=== PATIENT | male | born 1975 | race Caucasian/White ===

== ENCOUNTER 2017-04-19 17:53 | Emergency (ER) | payer MEDICARE, MEDICAID ==
[~2017-04-19] VITALS: Ht 180.3 cm; Wt 113.4 kg
[2017-04-19] MEDS ORDERED: TETANUS,DIPTH,PERTUSS P/F (BOOSTRIX) 0.5 ML VIAL IM STA (19:34)
[2017-04-19] MEDS ORDERED: NS IV 1000 ML 1,000 ML IV ONE ×2 (19:34→22:31)
[2017-04-19] MEDS ORDERED: KETOROLAC 30 MG/ML VIAL IVP STA (19:34)
[2017-04-19 19:45] LABS: BASOPHILS % (AUTO) 0 % (0-10); EOSINOPHILS % (AUTO) 0 % (0-10); LYMPHOCYTES # (AUTO) 1.2 X 10^3 (1.0-4.0); LYMPHOCYTES % (AUTO) 8 % (12-44); MEAN CORPUSCULAR HEMOGLOBIN 28 PG (25-34); MEAN CORPUSCULAR HGB CONC 35 G/DL (32-36); MEAN CORPUSCULAR VOLUME 82 FL (80-99); MEAN PLATELET VOLUME 12.2 FL (7.4-10.4); MONOCYTES % (AUTO) 7 % (0-12); NEUTROPHILS # (AUTO) 12.4 X 10^3 (1.8-7.8); NEUTROPHILS % (AUTO) 85 % (42-75); PLATELET COUNT 251 10^3/uL (130-400); RED BLOOD COUNT 5.41 10^6/uL (4.35-5.85); RED CELL DISTRIBUTION WIDTH 13.3 % (10.0-14.5); WHITE BLOOD COUNT 14.6 10^3/uL (4.3-11.0)
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
[2017-04-19 19:53] LABS: ALANINE AMINOTRANSFERASE 57 U/L (0-55); ALBUMIN 4.5 GM/DL (3.2-4.5); ANION GAP 10 MMOL/L (5-14); ASPARTATE AMINO TRANSFERASE 34 U/L (5-34); BILIRUBIN,TOTAL 0.9 MG/DL (0.1-1.0); BLOOD UREA NITROGEN 8 MG/DL (7-18); BUN/CREATININE RATIO 7; CALCIUM 9.5 MG/DL (8.5-10.1); CARBON DIOXIDE 25 MMOL/L (21-32); CHLORIDE 104 MMOL/L (98-107); GFR ESTIMATED > 60; GLUCOSE 99 MG/DL (70-105); POTASSIUM 3.9 MMOL/L (3.6-5.0); SODIUM 139 MMOL/L (135-145); TOTAL PROTEIN 7.8 GM/DL (6.4-8.2)
[2017-04-19 20:19] LABS: BAND NEUTROPHILS 14 %; EOSINOPHILS % (MANUAL) 0 %; LYMPHOCYTES % (MANUAL) 9 %; NEUTROPHILS % (MANUAL) 76 %
[2017-04-19] MEDS ORDERED: NS IV 500 ML 500 ML IV ONE (22:03)
[2017-04-19 22:47] VITALS: BP 121/87
[2017-04-20 00:01] VITALS: BP 111/96
== END 2017-04-20 00:01 | disposition short-term general hospital (02) ==
LOC: EDUNIT# 17:53 → ER 17:56
DX: Z04.3 Encounter for examination and observation following other accident (principal)
CPT/HCPCS: 36415; 80053; 85007; 85027; 90471; 90715; 96361; 96374

== ENCOUNTER 2017-06-02 05:58 | Emergency (ER) | payer MEDICARE, MEDICAID ==
[~2017-06-02] VITALS: Ht 177.8 cm; Wt 101.6 kg
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
[2017-06-02] MEDS ORDERED: ACYC800T PO (06:36)
[2017-06-02 06:44] VITALS: BP 0/0
== END 2017-06-02 06:44 | disposition home or self-care (01) ==
LOC: EDUNIT# 05:58 → ER 06:01
DX: B02.9 Zoster without complications (principal)
CPT/HCPCS: 99282

== ENCOUNTER 2023-01-02 06:43 | Outpatient (CLI) | payer OTHER, MEDICAID ==
[~2023-01-02] VITALS: Ht 180.3 cm; Wt 117.3 kg
[~2023-01-02 06:43] MED LIST: ACYC-112 PO
[2023-01-02] MEDS ORDERED: ASPI-1238 PO (10:29)
== END 2023-01-02 10:34 | disposition home or self-care (01) ==
LOC: PREOP 06:43
PROVIDERS: ATTEND Internal Medicine
DX: Z01.818 Encounter for other preprocedural examination (principal)